=== PATIENT | female | born 1985 | race Caucasian/White ===

== ENCOUNTER 2023-03-09 04:05 | Emergency (ER) | payer OTHER, SELFPAY ==
[2023-03-09] VITALS (20 sets, daily range): BP systolic 167–201; BP diastolic 98–125; PULSE 87–117; RESP 14–22; TEMP 36.2; O2SAT 90–100
--- NOTE | ~2023-03-09 | XR_ITS ---
EXAMINATION: XR chest 2V DATE: 03/09/2023 15:00 INDICATION: Shortness of breath TECHNIQUE: PA and lateral views of the chest are obtained. COMPARISON: 07/30/2016 FINDINGS: The lungs are free of acute opacities. No pleural effusion or pneumothorax. The cardiomedia stinal silhouette is normal. There is mild thoracic spondylosis. There is chronic anterior vertebral body wedging in the lower thoracic spine, likely physiologic. IMPRESSION: 1. No acute cardiopulmonary abnormality. Reviewed, dictated and finalized at location F. HALMOLOGY TECHNICIAN
--- NOTE | 2023-03-09 04:20 | ECG_ITS ---
Measurements Intervals [place] Rate: 106 P: 58 W[place]: 170 QRS: 25 QRSD: 93 T: 44 QT: 333 QTc: 444 Interpretive Statements SINUS TACHYCARDIA DELAYED PRECORDIAL R/S TRANSITION BASELINE ARTIFACT- I, II, III ABNORMAL ECG NO PREVIOUS ECG AVAILABLE FOR COMPARISON Electronically Signed On 03-09-2023 6:20:55 SUPPLY CHAIN SYSTEMS MANAGER by Lenard Valdez D.O.
[2023-03-09 04:59] LABS: Basophils Absolute Auto 0.1 K/mm3 (0.0-0.1); Basophils Percent Auto 0.7 % (0.2-1.2); Eosinophils Absolute Auto 0.4 K/mm3 (0-0.3); Eosinophils Percent Auto 3.8 % (0-4.4); Hematocrit 37.9 % (37.0-47.0); Hemoglobin 11.3 g/dL (12.0-15.0); Immature Granulocyte Absolute 0.06 K/mm3 (0.00-0.031); Immature Granulocyte Percent A 0.6 % (0-0.5); Lymphocytes Absolute Auto 1.52 K/mm3 (0.9-3.2); Lymphocytes Percent Auto 14.1 % (18.3-44.2); Mean Corpuscular HGB Conc 29.8 g/dl (32-36); Mean Corpuscular Hemoglobin 23.5 pg (26-34); Mean Platelet Volume 8.8 fl (7.4-10.4); Monocytes Absolute Auto 0.8 K/mm3 (0.1-0.6); Monocytes Percent Auto 7.3 % (2.6-8.5); Neutrophils Absolute Auto 7.9 K/mm3 (1.3-6.7); Neutrophils Percent Auto 73.5 % (45.5-73.1); Platelet Count Result 327 k/mm3 (150-375); Red Cell Distribution Width 17.9 % (11.5-14.5); White Blood Count 10.8 K/mm3 (4.5-10.0)
[2023-03-09 05:11] LABS: Alanine Aminotransferase 30 U/L (6-35); Alkaline Phosphatase 82 U/L (38-126); Anion Gap 10 mmol/L (8-16); Aspartate Amino Transferase 27 U/L (14-36); Bilirubin,Total 0.6 mg/dL (0.2-1.3); Blood Urea Nitrogen 8 mg/dL (7-17); Calcium 8.8 mg/dL (8.4-10.2); Carbon Dioxide 24 mmol/L (22-30); Chloride 106 mmol/L (98-107); Estimated CRCL calculation 184 ml/min; Estimated Glomerular Filt Rate > 60; Glucose 138 mg/dL (65-110); Potassium 3.4 mmol/L (3.4-5.0); Sodium 140 mmol/L (137-145)
[2023-03-09] MEDS: IPRATROPIUM BR 0.02% INH SOLN 0.5 MG/2.5 ML VIAL 1 MG INHALATION (05:15)
[2023-03-09] MEDS: ALBUTEROL SULFATE NEB 2.5 MG/3 ML INH 10 MG INHALATION (05:15)
[2023-03-09 05:25] LABS: Platelet Estimate Adequate (Adequate); Polychromasia 1+ (NORMAL)
[2023-03-09 05:26] LABS: Hypochromasia 1+ (NORMAL); Schistocytes None Seen (NORMAL)
[2023-03-09 05:42] LABS: Influenza A QL RT-PCR Negative (Negative); Influenza B QL RT-PCR Negative (Negative); SARS-CoV-2 RNA PCR Negative (Negative)
[2023-03-09] MEDS: predniSONE 20 MG TABLET 60 MG PO (06:03)
[2023-03-09] MEDS: BENZONATATE 100 MG CAPSULE PO (06:04)
--- NOTE | 2023-03-09 06:06 | ED.GENADULT ---
HPI - General Adult General Chief complaint: Shortness of Breath/Dyspnea Stated complaint: SOB Time Seen by Provider: 03/09/23 04:27 History of Present Illness HPI narrative: patient presents to the emergency department with shortness of breath and cough. She denies history of asthma although smoked cigarettes for a while and now vapes. She has had a persistent cough for the past week. Denies fevers and chills. Tonight felt very short of breath. Related Data Allergies Allergy/AdvReac Type Severity Reaction Status Date / Time No Known Allergies Allergy Verified 08/29/15 09:14 Review of Systems Review of Systems: review of systems negative except what is documented in the HPI Exam Narrative: GENERAL: Well-appearing, well-nourished, and in no acute distress. HEAD: Normocephalic, atraumatic. EYES: PERRLA and EOMI. ENT: Nares clear, no rhinorrhea or epistaxis. Mucous membranes moist. NECK: Supple. CHEST: no wheezes but decreased expiratory breath sounds. No respiratory distress. HEART: Regular rate and rhythm. ABDOMEN: Soft, nontender, nondistended. EXTREMITIES: Normal range of motion. No edema. SKIN: Warm, dry, no rash. NEURO: No focal deficits. Alert and oriented x3. PSYCH: Normal mood and affect. Course Course Emergency Course: differential diagnosis includes but not limited to to pneumonia, bronchitis, bronchiolitis Vital Signs Vital signs: Vital Signs Temperature 36.2 C L 03/09/23 04:08 Pulse Rate 117 H 03/09/23 04:08 Respiratory Rate 03/09/23 04:08 Blood Pressure 168/125 H 03/09/23 04:08 Pulse Oximetry 97 03/09/23 04:08 Oxygen Delivery Room Air 03/09/23 04:08 Temperature 36.2 C L 03/09/23 04:08 Pulse Rate 117 H 03/09/23 04:08 Respiratory Rate 20 03/09/23 04:08 Blood Pressure 168/125 H 03/09/23 04:08 Pulse Oximetry 97 03/09/23 04:08 Oxygen Delivery Room Air 03/09/23 04:08 Medical Decision Making Vital Signs Vital Signs: Vital Signs Temperature 36.2 C L 03/09/23 04:08 Pulse Rate 117 H 03/09/23 04:08 Respiratory Rate 20 03/09/23 04:08 Blood Pressure 168/125 H 03/09/23 04:08 Pulse Oximetry 97 03/09/23 04:08 Oxygen Delivery Room Air 03/09/23 04:08 Temperature 36.2 C L 03/09/23 04:08 Pulse Rate 117 H 03/09/23 04:08 Respiratory Rate 20 03/09/23 04:08 Blood Pressure 168/125 H 03/09/23 04:08 Pulse Oximetry 97 03/09/23 04:08 Oxygen Delivery Room Air 03/09/23 04:08 Lab Data 03/09/23 04:51 03/09/23 04:51 Labs: Lab Results 03/09/23 Range/Units 04:51 WBC 10.8 H (4.5-10.0) K/mm3 RBC 4.80 (4.2-5.4) M/mm3 Hgb 11.3 L (12.0-15.0) g/dL Hct 37.9 (37.0-47.0) % MCV 79.0 L (80-100) fl MCH 23.5 L (26-34) pg MCHC 29.8 L (32-36) g/dl RDW 17.9 H (11.5-14.5) % Plt Count 327 (150-375) k/mm3 MPV 8.8 (7.4-10.4) fl Immature Gran % (Auto) 0.6 H (0-0.5) % Neut % (Auto) 73.5 H (45.5-73.1) % Lymph % (Auto) 14.1 L (18.3-44.2) % [place] % (Auto) 7.3 (2.6-8.5) % Eos % (Auto) 3.8 (0-4.4) % Baso % (Auto) 0.7 (0.2-1.2) % Lymph # (Auto) 1.52 (0.9-3.2) K/mm3 [place] # (Auto) 0.8 H (0.1-0.6) K/mm3 Eos # (Auto) 0.4 H (0-0.3) K/mm3 Baso # (Auto) 0.1 (0.0-0.1) K/mm3 Abs Immat Gran (auto) 0.06 H (0.00-0.031) K/mm3 Absolute Neuts (auto) 7.9 H (1.3-6.7) K/mm3 Absolute Nucleated RBC 0.0 (0.0-0.012) K/mm3 Nucleated RBC % 0.0 (0.0-0.2) % Platelet Estimate Adequate (Adequate) Polychromasia 1+ (NORMAL) Hypochromasia 1+ (NORMAL) Schistocytes None seen (NORMAL) Sodium 140 (137-145) mmol/L Potassium 3.4 (3.4-5.0) mmol/L Chloride 106 (98-107) mmol/L Carbon Dioxide 24 (22-30) mmol/L Anion Gap 10 (8-16) mmol/L BUN 8 (7-17) mg/dL Creatinine 0.50 L (0.7-1.0) mg/dL Estim Creat Clear Calc 184 ml/min Estimated GFR > 60 (59 - ) Glucose 138 H (65-110) mg/dL Calcium 8.8 (8.4-10.2) mg/dL Total Mani
[2023-03-09] MEDS: cloNIDine HCL 0.1 MG TABLET (07:26)
--- NOTE | 2023-03-09 07:29 | PC.NURSE ---
Pt given Clonidine 0.1 x2 tabs, Clonidine 0.2mg 1 tab unavailable
== END 2023-03-09 07:34 | disposition home or self-care (01) ==
PROVIDERS: Emergency Provider Emergency Medicine; PCP Internal Medicine
DX: J40 Bronchitis, not specified as acute or chronic (principal); R05.2 Subacute cough
CPT/HCPCS: 36415; 71046; 80053; 85025; 87636; 93005; 94640; 99284; A9270; J7512

== ENCOUNTER 2023-03-20 10:31 | Emergency (ER) | payer OTHER, SELFPAY ==
--- NOTE | ~2023-03-20 | XR_ITS ---
EXAMINATION: XR chest 2V DATE: 03/20/2023 12:34 INDICATION: Chest pain. Cough. TECHNIQUE: Frontal and lateral views of the chest were obtained. COMPARISON: Chest 2 views 03/09/2023 FINDINGS: There is no pneumonia, pleural effusion, or pneumothorax. The heart size is normal. There i s mild chronic anterior wedging of multiple vertebral bodies. IMPRESSION: 1. No acute cardiopulmonary disease. Reviewed, dictated and finalized at location A. OR ADULTS DIRECTOR
[2023-03-20 11:00] VITALS: BP 184/115; PULSE 120; RESP 18; TEMP 36.7; O2SAT 92
--- NOTE | 2023-03-20 11:04 | ECG_ITS ---
Measurements Intervals [place] Rate: 114 P: 71 [place]: 140 QRS: 44 QRSD: 89 T: 46 QT: 321 QTc: 444 Interpretive Statements SINUS TACHYCARDIA ABNORMAL RHYTHM ECG COMPARED TO ECG 03/09/2023 04:27:43 NO SIGNIFICANT CHANGES Electronically Signed On 03-20-2023 13:36:02 ELECTRICAL CONTROLS ASSEMBLER by Jean Bernardo M.D.
--- NOTE | 2023-03-20 13:02 | ED.SOB ---
HPI - SOB/Dyspnea General Chief Complaint: Shortness of Breath/Dyspnea Stated Complaint: SOB, Cough Time Seen by Provider: 03/20/23 13:01 Source: patient Mode of arrival: ambulatory Limitations: no limitations History of Present Illness HPI Narrative: This is a 37 yo female who presents with report of persistent shortness of breath/dyspnea and a cough. Patient has had a chronic cough. It is productive of dark green sputum in the morning that clears as the day goes on. No fevers. It has been occurring since 03/09. She denies any chest pain. No unilateral leg swelling/edema, hemoptysis, travel, surgery/immobilization, control/exogenous hormones. She had been vaping but quit. She had been seen previously for this and given doxycycline (2 doses remain) and prednisone (course completed). She has a history of bronchitis 2 years ago. Related Data Allergies Allergy/AdvReac Type Severity Reaction Status Date / Time No Known Allergies Allergy Verified 08/29/15 09:14 [facility] Past Medical History Medical History (Updated 03/22/23 @ 01:44 by Marian Mcghee MD) Bronchitis Social History Social History (Updated 03/22/23 @ 01:44 by Marian Mcghee MD) Smoking status: Former smoker Tobacco type: e-cigarettes/vaping Exam Narrative: GENERAL: Well-appearing, well-nourished, and in no acute distress. HEAD: Normocephalic, atraumatic. EYES: No scleral icterus or injection. ENT: Nares clear, no rhinorrhea or epistaxis. Mucous membranes moist. NECK: Supple. No meningismus CHEST: Clear to auscultation througout without focal consolidation, wheezes, crackles. No respiratory distress. Speaking in full sentences HEART: Tachycardic rate and rhythm. ABDOMEN: Soft, obese but nontender EXTREMITIES: Normal range of motion. No bilateral edema. SKIN: Warm, dry, no rash. NEURO: No focal deficits. Alert and oriented x3. PSYCH: Normal mood and affect. Course Vital Signs Vital signs: Vital Signs Temperature 98.1 F 03/20/23 11:00 Pulse Rate 120 H 03/20/23 11:00 Respiratory Rate 18 03/20/23 11:00 Blood Pressure 184/115 H 03/20/23 11:00 Pulse Oximetry 92 03/20/23 11:00 Oxygen Delivery Room Air 12/01/23 11:00 Temperature 98.2 F 03/20/23 14:02 Pulse Rate 110 H 03/20/23 14:02 Respiratory Rate 23 H 03/20/23 14:02 Blood Pressure 180/102 H 03/20/23 14:02 Pulse Oximetry 94 03/20/23 14:02 Oxygen Delivery Room Air 03/20/23 13:15 MDM - SOB/Dyspnea MDM Narrative Medical decision making narrative: This is a 37 yo who presents with shortness of breath and a cough which has been persistent. Patient already seen for this complaint and prescribed steroids (course completed) and doxycycline (2 doses remain). In the ED she is afebrile but persistently tachycardic. Given this, unable to apply PERC so will include D-dimer in work up given otherwise low pretest probability in the absence of hormone use, travel, immobility, or hemoptysis. Work up will also incude 2 view chest xray and 4plex testing as well as BNP given her hypertension. D-dimer is within normal limits so will not proceed with imaging. Viral testing negative. BNP between 100 and 400 thus diagnosis of heart failure is equivocal. Patient remains hypertensive. She is currently prescribed hydrochlorothiazine. Will follow up outpatient for continued management of this. We discussed at length that patient should balance staying active with resting and that recovery may take several weeks and the chronic cough may linger. For this, we discussed occasional but not excessive or routine usage of cough suppresant. She verifies understanding and is comfortable and stable with discharge. Differential Diagnosis Differential diagnosis: Likely community acquired pneumonia, pulmonary embolism and other (bronchitis, pneumothorax, acute viral process (e.g. covid, influenza)) Lab Data Attestation: I reviewed the patient's lab results. Lab results narrati
[2023-03-20 13:15] VITALS: BP 194/106; PULSE 120; RESP 18; O2SAT 98
[2023-03-20 13:23] LABS: Basophils Absolute Auto 0.1 K/mm3 (0.0-0.1); Basophils Percent Auto 0.8 % (0.2-1.2); Eosinophils Absolute Auto 0.3 K/mm3 (0-0.3); Eosinophils Percent Auto 2.3 % (0-4.4); Hematocrit 41.3 % (37.0-47.0); Hemoglobin 12.5 g/dL (12.0-15.0); Immature Granulocyte Absolute 0.03 K/mm3 (0.00-0.031); Immature Granulocyte Percent A 0.3 % (0-0.5); Lymphocytes Absolute Auto 2.09 K/mm3 (0.9-3.2); Lymphocytes Percent Auto 17.8 % (18.3-44.2); Mean Corpuscular HGB Conc 30.3 g/dl (32-36); Mean Corpuscular Hemoglobin 23.6 pg (26-34); Mean Corpuscular Volume 77.9 fl (80-100); Mean Platelet Volume 8.5 fl (7.4-10.4); Monocytes Absolute Auto 0.8 K/mm3 (0.1-0.6); Monocytes Percent Auto 6.9 % (2.6-8.5); Neutrophils Absolute Auto 8.4 K/mm3 (1.3-6.7); Neutrophils Percent Auto 71.9 % (45.5-73.1); Platelet Count Result 394 k/mm3 (150-375); Red Cell Distribution Width 17.6 % (11.5-14.5); White Blood Count 11.7 K/mm3 (4.5-10.0)
[2023-03-20 13:37] LABS: Alanine Aminotransferase 32 U/L (6-35); Albumin Level 4.3 g/dL (3.5-5.1); Alkaline Phosphatase 88 U/L (38-126); Anion Gap 11 mmol/L (8-16); Aspartate Amino Transferase 32 U/L (14-36); Bilirubin,Total 0.7 mg/dL (0.2-1.3); Blood Urea Nitrogen 9 mg/dL (7-17); Calcium 9.5 mg/dL (8.4-10.2); Carbon Dioxide 28 mmol/L (22-30); Chloride 99 mmol/L (98-107); Estimated Glomerular Filt Rate > 60; Glucose 146 mg/dL (65-110); Potassium 3.9 mmol/L (3.4-5.0); Sodium 138 mmol/L (137-145)
[2023-03-20 13:41] LABS: D Dimer 0.35 ug/mL (<0.48)
[2023-03-20 13:46] LABS: NT Pro B Type Natriuretic Pept 113 pg/mL (19.9-100)
[2023-03-20 13:59] LABS: Influenza A QL RT-PCR Negative (Negative); Influenza B QL RT-PCR Negative (Negative); SARS-CoV-2 RNA PCR Negative (Negative)
[2023-03-20 14:02] VITALS: BP 180/102; PULSE 110; RESP 23; TEMP 36.8; O2SAT 94
[2023-03-20] MEDS: guaiFENesin/DEXTROMETHORPHAN 10 ML UDC PO (14:56)
== END 2023-03-20 15:04 | disposition home or self-care (01) ==
PROVIDERS: Emergency Medicine; Emergency Provider Student in an Organized Health Care Education/Training Program; PCP Family Medicine
DX: J40 Bronchitis, not specified as acute or chronic (principal); I10 Essential (primary) hypertension; Z20.822 Contact with and (suspected) exposure to COVID-19; Z87.891 Personal history of nicotine dependence
CPT/HCPCS: 36415; 71046; 80053; 83880; 85025; 85380; 87636; 93005; 99284; A9270

== ENCOUNTER 2023-11-10 14:46 | Emergency (ER) | payer OTHER, SELFPAY ==
--- NOTE | ~2023-11-10 | XR_ITS ---
XR knee LT min 4V Ordering provider: Lorenza Diaz NP History: . tripped over dogbed,fell onto knee,pain anterior medial . Comparison: None. FINDINGS: BONES: No acute fracture or dislocation. JOINT SPACES: Normal. SOFT TISSUES: Normal. IMPRESSION: No acute osseous abnormality left knee. Reviewed, dictated and finalized at location A.
[2023-11-10 14:58] VITALS: BP 128/113; PULSE 104; RESP 18; TEMP 36.8; O2SAT 99
--- NOTE | 2023-11-10 14:59 | ED.LOWEXIN ---
HPI - Extremity Injury (Lower) General Chief Complaint: Extremity Injury, Lower Stated Complaint: left knee injury Time Seen by Provider: 11/10/23 14:59 Source: patient, RN notes reviewed and old records reviewed Mode of arrival: wheelchair Limitations: no limitations History of Present Illness HPI Narrative: 38 year old female who presents to [facility] care with complaints of pain to her left knee anterior and medial aspect after tripping over dog bed and landed onto her left knee directly last evening. Patient reports that it hurts to ambulate on her left knee and she reports feelings of swelling and tightness to posterior knee area.Patient reports that she is able to bend her knee, has been walking on it which increases her discomfort. she states that she has constant ache to her anterior medial left knee, has taken Ibuprofen at intervals since last night for her pain. MD complaint: knee injury (left) Onset (ago): day(s) (injury last evening) Type of Injury: blunt Place: home Severity scale (1-10): 3 Exacerbating factors: weight bearing and movement Treatments prior to arrival: NSAIDS Related Data Home Medications Medication Instructions Recorded Confirmed buspirone 10 mg tablet 10 mg DIRECTED 11/10/23 11/10/23 lisinopril 20 1 tablet DIRECTED 11/10/23 11/10/23 mg-hydrochlorothiazide 12.5 mg tablet metoprolol succinate 50 mg 50 mg PO DIRECTED 11/10/23 11/10/23 tablet,extended release 24 hr Allergies Allergy/AdvReac Type Severity Reaction Status Date / Time No Known Allergies Allergy Verified 08/29/15 09:14 Review of Systems Review of Systems: CONSTITUTIONAL: Denies fever, chills, or sweats. EYES: Denies visual changes, redness, or discharge. ENT: Denies rhinorrhea, congestion, sore throat, or otalgia. CARDIOVASCULAR: Denies chest pain, palpitations, or edema. RESPIRATORY: Denies cough or dyspnea. GASTROINTESTINAL: Denies abdominal pain, nausea, vomiting, or diarrhea. GENITOURINARY: Denies dysuria or hematuria. SKIN: Denies rash or itching. MUSCULOSKELETAL: Denies back pain, positive for left knee pain anterior and medial aspect, or myalgia. NEUROLOGIC: Denies headache, numbness, or weakness. PSYCHIATRIC: Reports history of anxiety or depression. All systems reviewed & are unremarkable except as noted in HPI and below PMFSH Past Medical History Medical History (Updated 11/10/23 @ 16:20 by Lorenza Diaz NP) Anxiety Bronchitis Hypertension Surgical History Surgical History (Updated 11/10/23 @ 15:33 by Lorenza Diaz NP) [place] teeth extracted Social History Social History (Updated 11/10/23 @ 16:12 by Lorenza Diaz NP) Smoking status: Current every day smoker Tobacco type: e-cigarettes/vaping Additional smoking assessment comments: former cigarette use quit 2012 now vapes Alcohol intake: current Alcohol use details: rare social Substance use type: does not use Living arrangements: with family Gender identity (if verbalized by the patient): Female Comments At time of signature, agree with nursing past medical, surgical, social and family history. There is no relevant family history pertinent to the presenting complaint Exam Narrative: GENERAL: Well-appearing, well-nourished, and in no acute distress. HEAD: Normocephalic, atraumatic. EYES: PERRLA and EOMI. ENT: Nares clear, no rhinorrhea or epistaxis. Mucous membranes moist.TM's normal throat pink with no swelling NECK: Supple.no lymphadenopathy CHEST: Clear to auscultation. No respiratory distress.SAO2 99% HEART: Regular rate and rhythm. No murmur heard. Normal peripheral pulses. ABDOMEN: Soft, nontender, nondistended, normal active bowel sounds. EXTREMITIES: Normal range of motion. No edema.Exception noted to left knee which does have some swelling present with pain to anterior and medial aspects of knee, strong pedal pulse. Patient reports constant ache to her left knee which increases with movemen
[2023-11-10 15:51] VITALS: BP 155/110; PULSE 99
== END 2023-11-10 16:01 | disposition home or self-care (01) ==
PROVIDERS: Emergency Provider Registered Nurse; PCP Family Medicine
DX: S80.02XA Contusion of left knee, initial encounter (principal); W01.0XXA Fall on same level from slipping, tripping and stumbling without subsequent striking against object, initial encounter; F41.9 Anxiety disorder, unspecified; I10 Essential (primary) hypertension; F17.290 Nicotine dependence, other tobacco product, uncomplicated
CPT/HCPCS: 73564; 99213; G0463